=== PATIENT | female | born 1990 | race Caucasian/White ===

== ENCOUNTER 2022-12-28 09:44 | Inpatient (IN) | payer OTHER ==
[~2022-12-28] VITALS: Ht 167.6 cm; Wt 86.2 kg
[2023-01-16] MEDS ORDERED: STOOL SOFTENER50 MG PO (08:20)
[2023-01-16] MEDS ORDERED: PRENATAL TABLE1 EAC4 PO (08:21)
== END 2023-01-18 12:26 | disposition home or self-care (01) | DRG 807 ==
LOC: EDBD → OB/GYN 01-12 09:44 → LDR 01-16 07:19 → OB/GYN 01-16 17:39
PROVIDERS: ADMIT Obstetrics & Gynecology; ATTEND Obstetrics & Gynecology
PROC: 10E0XZZ Delivery of Products of Conception, External Approach (ICD-10-PCS; principal; 2023-01-16)
PROC: 0UQMXZZ Repair Vulva, External Approach (ICD-10-PCS; 2023-01-16)
PROC: 0KQM0ZZ Repair Perineum Muscle, Open Approach (ICD-10-PCS; 2023-01-16)
PROC: 4A1HXCZ Monitoring of Products of Conception, Cardiac Rate, External Approach (ICD-10-PCS; 2023-01-16)
DX: O70.1 Second degree perineal laceration during delivery (principal); Z37.0 Single live birth; O71.82 Other specified trauma to perineum and vulva; Z3A.40 40 weeks gestation of pregnancy; Z20.822 Contact with and (suspected) exposure to COVID-19

== ENCOUNTER 2023-01-08 10:57 | Outpatient (CLI) | payer OTHER | END 2023-01-08 12:16 | disposition home or self-care (01) | LOC: NST 10:57 | PROVIDERS: ATTEND Obstetrics & Gynecology Gynecology | DX: Z34.83 Encounter for supervision of other normal pregnancy, third trimester (principal) ==